=== PATIENT | male | born 1955 | race Caucasian/White ===

== ENCOUNTER → 2018-04-25 | Outpatient (CLI) | payer OTHER ==
[~2018-04-25] MED LIST: GADOBUTROL 10 MMOL/10 ML VIAL ONE
== END | disposition home or self-care (01) ==
LOC: RAD 09:48
PROVIDERS: ATTEND Student in an Organized Health Care Education/Training Program
DX: G31.9 Degenerative disease of nervous system, unspecified (principal); E22.1 Hyperprolactinemia
CPT/HCPCS: 70553; A9585

== ENCOUNTER 2018-10-27 17:03 | Emergency (ER) | payer OTHER ==
[~2018-10-27] VITALS: Ht 175.3 cm; Wt 81.0 kg
[2018-10-27 17:10] VITALS: BP 173/95
[2018-10-27] MEDS ORDERED: PAROXETINE (17:24)
[2018-10-27] MEDS ORDERED: ENALAPRIL (17:24)
[2018-10-27] MEDS ORDERED: SIMVASTATIN (17:24)
[2018-10-27] MEDS ORDERED: LIDOCAINE-MPF 1%, 5ML INFIL ONE (17:30)
[2018-10-27] MEDS ORDERED: ACETAMINOPHEN 500 MG TABLET ONE (17:37)
[2018-10-27] MEDS ORDERED: ACETAMINOPHEN 500 MG TABLET PO ONE (18:00)
[2018-10-27] MEDS ORDERED: LIDOCAINE-MPF 1%, 5ML ONE (18:07)
[2018-10-27] MEDS ORDERED: BACITRACIN ZINC OINT 500U/GM, 0.9 GM ONE (18:39)
== END 2018-10-27 19:05 ==
LOC: ED 18:45
DX: S50.872A Other superficial bite of left forearm, initial encounter (principal); S60.572A Other superficial bite of hand of left hand, initial encounter; I10 Essential (primary) hypertension; W54.0XXA Bitten by dog, initial encounter; Y93.89 Activity, other specified; Y92.009 Unspecified place in unspecified non-institutional (private) residence as the place of occurrence of the external cause; Y99.8 Other external cause status
CPT/HCPCS: 12031; 12041; 99285